=== PATIENT | male | born 1970 | race Caucasian/White ===

== ENCOUNTER 2025-01-06 13:01 | Day surgery (SDC) | payer BC ==
[2025-01-06] MEDS: IV FLUID CONTINUATION 1,000 ML IV ONE ×2 (14:03→15:09)
[2025-01-06] MEDS: LACTATED RINGERS 1,000 ML IV SCH (14:16)
[2025-01-06 14:18] VITALS: TEMP 98.8
[2025-01-06] MEDS ORDERED: PROPOFOL 10 MG/ML 20 ML VIAL IV ONE (15:10)
--- NOTE | 2025-01-06 15:34 | P.PCN ---
Date of Procedure: 01/06/25 Procedure(s) Performed: BRIEF HISTORY: Patient is a 54-year-old pleasant white male scheduled for an elective colonoscopy as a part of acute recurrent sigmoid diverticulitis. He had 4 episodes of acute diverticulitis this year treated with antibiotics. Last episode was 2 months ago. He is currently asymptomatic. PROCEDURE PERFORMED: Colonoscopy. PREOPERATIVE DIAGNOSIS: Acute recurrent sigmoid diverticulitis. IV sedation per Anesthesia. PROCEDURE: After informed consent was obtained, the patient, was brought into the endoscopy unit. IV sedation was administered by Anesthesia under continuous monitoring. Digital rectal examination was normal. Initially the Olympus CF-160 flexible video colonoscope was then inserted in the rectum, gradually advanced into the cecum without any difficulty. Careful examination was performed as the scope was gradually being withdrawn. Ileocecal valve and the appendiceal orifice were visualized and appeared normal. Prep was excellent. Mucosa of the cecum, ascending colon, transverse colon, descending colon, sigmoid colon, and rectum appeared normal. Scattered left-sided diverticulosis. Retroflexion was performed in the rectum and no lesions were seen. The patient tolerated the procedure well. IMPRESSION: Normal-appearing colon from rectum to cecum with no evidence of colitis or colorectal neoplasia Scattered left-sided diverticulosis. RECOMMENDATIONS: Findings of this examination were discussed with the patient as well as his family. He was advised to be on a high-fiber diet and take fiber supplements on a regular basis. Recommend repeat screening colonoscopy in 10 years..
[2025-01-06 15:58] VITALS: BP 135/92; PULSE 74; RESP 17
== END 2025-01-06 16:20 | disposition home or self-care (01) ==
LOC: ORWHC2ENDO 13:01
PROVIDERS: ATTEND Internal Medicine Gastroenterology
DX: K57.32 Diverticulitis of large intestine without perforation or abscess without bleeding (principal)
CPT/HCPCS: 45378; J2704